=== PATIENT | male | born 1960 | race Caucasian/White ===

== ENCOUNTER 2023-10-04 06:52 | Day surgery (SDC) | payer BC, SELFPAY ==
[2023-10-04 07:58] LABS: Glucose - Point of Care 112 mg/dl (70-99)
[2023-10-04 08:03] VITALS: BMI 45.3
== END 2023-10-04 09:50 | disposition home or self-care (01) ==
LOC: CATH 06:52
PROVIDERS: ATTENDING PHYSICIAN Internal Medicine Cardiovascular Disease; FAMILY PHYSICIAN Physician Assistant Medical; OTHER PHYSICIAN Internal Medicine Cardiovascular Disease
DX: I48.0 Paroxysmal atrial fibrillation (principal); I10 Essential (primary) hypertension; Z79.01 Long term (current) use of anticoagulants
CPT/HCPCS: 93312; 93320; 93325; 82962; 92960; 93005

== ENCOUNTER 2024-01-28 09:21 | Inpatient (IN) | payer BC, SELFPAY ==
[2024-01-28 09:42] VITALS: BP 129/83
--- NOTE | 2024-01-28 09:48 | W.PN.CD ---
Addendum entered and electronically signed by Manjinder Christian MD 01/28/24 17:59:
I saw and examined the patient.
The ASSISTANT FOOD SERVICE MANAGER's note was reviewed and I agree with the note.
Comment: So far tolerating sotalol. No plans for DCCV if he does not spontaneously converts. Plan is for ablation as scheduled.
Original Note:
Today's Communication / Plan
-
EKG
Sotalol loading per protocol
Follow telemetry
Impression / Plan
-
THIS IS THE SUMMARY
SEE SCANNED H&P
BACKGROUND: 63M with persistent atrial fibrillation, hypertension, ANATOLIY, and morbid obesity who presents for sotalol loading and eventual atrial fibrillation ablation.
Persistent atrial fibrillation
-Initially diagnosed 03/2022, recurrent with multiple cardioversions (last DCCV )
-Diltiazem has been held for 48 hours
-Plan is for sotalol loading, this drug requires intensive monitoring
-Oral anticoagulation: Eliquis 5 mg twice daily
-[id number]: score 1 (HTN)
-Plan for atrial fibrillation ablation in the future
Hypertension, HCTZ discontinued at office visit, follow BP
Non obstructive CAD, stable without chest pain
Dyslipidemia, continue atorvastatin 40 mg
ANATOLIY on CPAP
Morbid obesity, BMI 45
Prior prostate cancer
Subjective:
Denies CP and SOB.
Physical Exam
Physical Exam
Constitutional: No acute distress and Comfortable
EENT: Anicteric and Moist mucous membranes
Cardiovascular: Rhythm/rate is irregular and S1S2 is normal
Respiratory: Respiratory effort normal and Lungs clear to auscul.
GI: Soft, Distention absent, Flat, Non tender and Normal bowel sounds
Neuro/Psych: AO x 3
Other: Skin (warm and dry)
Data Reviewed
-
Date of Service: January 28, 2024
EKG: Ordered by me
Labs: Labs Reviewed by me
Old Records: Reviewed
[2024-01-28 10:15] VITALS: BMI 45.6
[2024-01-28 10:32] VITALS: BMI 45.6
--- NOTE | 2024-01-28 11:13 | PTCARENOTE ---
Admitted patient from home for sotalol loading. EKG done, labs done last week and an outpatient. Oriented to the room and plan of care, admission assessment completed. Controlled AF on the monitor, offers no complaints. Patient brought in his own
Bipap from home. Home med list confirmed.
[2024-01-28] MEDS: BETAPACE 120 MG PO ×2 (11:33→22:02)
[2024-01-28 11:39] VITALS: BP 136/98
--- NOTE | 2024-01-28 14:03 | CM ---
spoke to pt in room, he is prev indep, lives with his S.O. in a 2 story home with 1 step to enter. he denies any dc planning needs, he has a bipap he uses nightly. he denies any dc planning needs. plan si for dc to home when medically stable.
[2024-01-28 16:42] VITALS: BP 120/71
[2024-01-28 19:05] VITALS: BP 135/88
[2024-01-28] MEDS: THERAGRAN 1 TABLET PO (19:59)
[2024-01-28] MEDS: ELIQUIS 5 MG PO (19:59)
[2024-01-28] MEDS: LIPITOR 40 MG PO (19:59)
--- NOTE | 2024-01-28 20:54 | PTCARENOTE ---
Pt ambulating in room as a self. plan of care discussed- pt without complaints at this time. remains afib on the monitor.
[2024-01-28 22:02] VITALS: BP 125/83
[2024-01-28] MEDS: MELATONIN 12 MG PO (22:02)
[2024-01-29 03:46] VITALS: BP 114/82
[2024-01-29 07:21] VITALS: BP 124/90
[2024-01-29] MEDS: ALTACE 20 MG PO (08:55)
[2024-01-29] MEDS: PROTONIX 40 MG PO (08:56)
[2024-01-29] MEDS: ELIQUIS 5 MG PO ×2 (08:56→19:43)
[2024-01-29] MEDS: CELEBREX 200 MG PO (08:56)
[2024-01-29] MEDS: BETAPACE 120 MG PO ×2 (08:56→19:43)
[2024-01-29] MEDS: FLUSH (NSS) 1 FLUSH IV (08:57)
[2024-01-29 11:05] VITALS: BP 110/76
--- NOTE | 2024-01-29 11:49 | PTCARENOTE ---
Patient offers no complaints this morning, received 3rd dose of sotalol, QTc within normal range.
--- NOTE | 2024-01-29 15:08 | W.PN.CD ---
Today's Communication / Plan
-
Still tolerating sotalol.
No plans for DCCV if he does not spontaneously converts.
Plan is for ablation as scheduled.
Home tomorrow several hours after 6th dose of sotalol
Impression / Plan
-
Background: 63M with persistent atrial fibrillation, hypertension, ANATOLIY, and morbid obesity who presents for sotalol loading and eventual atrial fibrillation ablation.
Persistent atrial fibrillation
- Diagnosed 03/2022, recurrent after cardioversions (last DCCV )
- Sotalol loading, this drug requires intensive monitoring
- Oral anticoagulation: Eliquis 5 mg twice daily
- [id number]: score 1 (HTN)
-Atrial fibrillation ablation is already planned
Hypertension
- now off dilt and HCTZ
- monitor BP over time
BMI 45
- Goal is BMI <25 over time
Non obstructive CAD,
Dyslipidemia, continue atorvastatin 40 mg
ANATOLIY on CPAP
Morbid obesity, BMI 45
Prior prostate cancer
Subjective:
Denies CP and SOB.
Data reviewed: Tele good. No Torsades. EKG good. QTc fine
Physical Exam
Vital Signs/Labs
Vital Signs
Temp Pulse Resp BP Pulse Ox
98.2 F 72 20 110/76 97
01/29/24 11:09 01/29/24 12:00 01/29/24 11:09 01/29/24 11:05 01/29/24 11:09
01/28/24 01/29/24 01/30/24
06:59 06:59 06:59
Actual Weight 140.1 kg
Physical Exam
Constitutional: No acute distress
EENT: Anicteric
Cardiovascular: Rhythm/rate is irregular and Murmur/rub/gallop absent
Respiratory: Respiratory effort normal and Lungs clear to auscul.
GI: Soft and Distention absent
Neuro/Psych: AO x 3
Data Reviewed
-
Date of Service: January 29, 2024
[2024-01-29 15:44] VITALS: BP 143/93
[2024-01-29 18:33] VITALS: BP 120/69
[2024-01-29] MEDS: THERAGRAN 1 TABLET PO (19:43)
[2024-01-29] MEDS: LIPITOR 40 MG PO (19:43)
[2024-01-29 21:49] VITALS: BP 114/72
[2024-01-29] MEDS: MELATONIN 12 MG PO (22:01)
[2024-01-30 04:42] VITALS: BP 116/75
[2024-01-30] MEDS: BETAPACE 120 MG PO ×2 (06:02→17:02)
--- NOTE | 2024-01-30 08:55 | W.PN.CD ---
Addendum entered and electronically signed by Manjinder Christian MD 01/30/24 14:44:
I saw and examined the patient.
The INTERIOR PLANT CARETAKER's note was reviewed and I agree with the note.
Comment: Tele good. EKG good. Clinically tolerating sotalol. Anticipate home several hours after 6th dose of sotalol if tele/QTc good.
Original Note:
Today's Communication / Plan
-
-continue sotalol 120 mg PO Q 12 hours. Follow tele and EKG's. If QTC/tele/patient stable after 6th dose tonight, okay for d/c.
-He remains in rate-controlled afib and plan is ablation later this month
-continue Eliquis
-okay to remain off diltiazem and HCTZ, follow BP over time, but doing fine on current meds
Impression / Plan
-
Background: 63M with persistent atrial fibrillation, hypertension, ANATOLIY, and morbid obesity who presents for sotalol loading and eventual atrial fibrillation ablation.
Persistent atrial fibrillation
-Diagnosed 03/2022, recurrent after cardioversions (last DCCV )
-Sotalol loading, this drug requires intensive monitoring. He is tolerating this medicine without issues with stable tele and QTC by EKG, continue to monitor tele and EKG. If all remains stable, can go home 2 hours after tonight's dose of sotalol.
-Oral anticoagulation: Eliquis 5 mg twice daily
-[id number]: score 1 (HTN)
-Remains in AFIB and atrial fibrillation ablation is already planned
Hypertension
-now off dilt and HCTZ
-monitor BP over time
-it is stable here on ramipril and sotalol
BMI 45
- Goal is BMI <25 over time
Non obstructive CAD
Dyslipidemia, continue atorvastatin 40 mg
ANATOLIY on CPAP
Morbid obesity, BMI 45
Prior prostate cancer
Subjective:
Feeling fine, happy that he will likely go home tonight
Physical Exam
Vital Signs/Labs
Vital Signs
Temp Pulse Resp BP Pulse Ox
98.2 F 80 18 116/75 98
01/30/24 04:44 01/30/24 04:42 01/30/24 04:44 01/30/24 04:42 01/30/24 04:44
01/29/24 01/30/24 01/31/24
06:59 06:59 06:59
Actual Weight 140.1 kg
Physical Exam
Constitutional: No acute distress
EENT: Anicteric
Cardiovascular: Rhythm/rate is irregular
Respiratory: Respiratory effort normal and Lungs clear to auscul.
GI: Soft, Non tender and Normal bowel sounds
Neuro/Psych: AO x 3
Data Reviewed
-
Date of Service: January 30, 2024
EKG: Tracing Personally Visualized and interpreted (AFIB, stable QTC) and Other (tele AFIB, rate-controlled)
[2024-01-30] MEDS: PROTONIX 40 MG PO (09:54)
[2024-01-30] MEDS: CELEBREX 200 MG PO (09:55)
[2024-01-30] MEDS: ELIQUIS 5 MG PO ×2 (09:55→19:10)
[2024-01-30 09:58] VITALS: BP 135/84
[2024-01-30] MEDS: ALTACE 20 MG PO (10:03)
--- NOTE | 2024-01-30 10:05 | W.DS.TRANS ---
DC Summary - [employer]
-
Discharge Instructions:
Discharge Diagnosis/Procedures Persistent atrial fibrillation
Sotalol loading
Diet Low Sodium,Low Cholesterol,2 Gram Sodium
Activity No restrictions
Driving Restrictions As prior to admission
Bathing Restrictions None
Instructions:
Stand-Alone Forms:
Changes to Home Medications: Yes
Discharge Medications:
DC Medications w/original date entered in [employer]
apixaban 5 mg tablet (Eliquis) 5 mg PO BID Blood Clot Prevention/Tx 08/23/22
glucosam 750 mg-chondroi 100 mg-hyalur 1.65 mg-CF borate 108 mg tablet ([employer] Free [employer]) 2 tab PO DAILY Supplement 08/23/22
melatonin 12 mg tablet 12 mg PO HSPRN PRN insmonia 08/23/22
yxvrmbfn-cv-zazed 300 mcg-K 60 mcg-lycop 600 mcg-lutein 300 mcg tablet (Centrum Silver Men) 1 tab PO QPM Supplement 08/23/22
omeprazole 20 mg capsule,delayed release 20 mg PO DAILY Gastrointestinal Issue 08/23/22
ramipril 10 mg capsule 20 mg PO DAILY Blood Pressure 08/23/22
atorvastatin 40 mg tablet 40 mg PO QPM #90 tabs 09/01/22
nitroglycerin 0.4 mg sublingual tablet 0.4 mg sublingual [id number] PRN chest pain #25 tabs 09/01/22
coenzyme Q10 100 mg capsule (CoQ-10) 300 mg PO DAILY Supplement 10/04/23
docusate sodium 100 mg tablet (Stool Softener) 100 mg PO PRN PRN constipation 10/04/23
dtlxokxzmlt-mujkbtrldsslhquqlnjku-pbl H-enpgaeygg-spzlpd no.21 tablet 1 tab PO HS Supplement 10/04/23
celecoxib 200 mg capsule (Celebrex) 200 mg PO DAILY Pain 01/28/24
sotalol 120 mg tablet 120 mg PO Q12 #60 tabs 01/29/24
Home Medication Changes
sotalol added, HCTZ and diltiazem stopped
Pending Results: No
--- NOTE | 2024-01-30 11:11 | PTCARENOTE ---
ekg done post 5th sotalol dose. documented QTC. patient feeling good. independent in care. remains afib HR 60-70s. for d/c tonight after 6th dose and EKG
[2024-01-30 12:07] VITALS: BP 117/84
--- NOTE | 2024-01-30 12:15 | CM ---
CM following for DC planning needs.
Met w/ patient at bedside. He was on telephone.
Asked to confirm stock at [facility]. Call to [facility], 80 mg in stock, they can provide 1 1/2 pill until they receive 120 mg in stock, likely Fri. GUEST SERVICES REPRESENTATIVE and pt. aware.
There are no anticipated DC needs.
Plan is for home, no needs.
[2024-01-30 15:21] VITALS: BP 113/77
[2024-01-30] MEDS: THERAGRAN 1 TABLET PO (17:00)
[2024-01-30] MEDS: LIPITOR 40 MG PO (17:00)
--- NOTE | 2024-01-30 17:06 | PTCARENOTE ---
6th dose of sotalol given. ekg to be done 1900. and then d/c
== END 2024-01-30 20:00 | disposition home or self-care (01) | DRG 309 ==
LOC: IVU 09:21
PROVIDERS: ADMITTING PHYSICIAN Internal Medicine Cardiovascular Disease
DX: I48.19 Other persistent atrial fibrillation (principal); Z68.42 Body mass index [BMI] 45.0-49.9, adult; I10 Essential (primary) hypertension; G47.33 Obstructive sleep apnea (adult) (pediatric); I25.10 Atherosclerotic heart disease of native coronary artery without angina pectoris; E78.00 Pure hypercholesterolemia, unspecified; E66.01 Morbid (severe) obesity due to excess calories; Z79.01 Long term (current) use of anticoagulants; Z79.899 Other long term (current) drug therapy; Z85.46 Personal history of malignant neoplasm of prostate; Z87.891 Personal history of nicotine dependence
CPT/HCPCS: 93005

== ENCOUNTER 2024-02-19 05:52 | Day surgery (SDC) | payer BC, SELFPAY ==
[2024-02-12 08:22] VITALS: BMI 48.0
[2024-02-12 09:46] LABS: % Basophils 0.3 % (0-2); % Eosinophils 3.4 % (0-6); % Immature Granulocytes 0.2 % (0-0.5); % Monocytes 6.4 % (1.7-9.3); % Neutrophils 69.7 % (42.2-75.2); Absolute Eosinophils 0.3 10^3/uL (0-0.7); Absolute Lymphocytes 1.7 10^3/uL (1.2-3.4); Absolute Monocytes 0.6 10^3/uL (0.1-0.6); Absolute Neutrophils 6.1 10^3/uL (1.4-6.5); Hematocrit 38.5 % (39.0-52.0); Hemoglobin 13.5 g/dL (13.0-18.0); Mean Corp Hgb Conc. 35.1 g/dL (33.0-37.0); Mean Corpuscular Hgb 31.6 pg (27.0-31.0); Mean Corpuscular Volume 90.2 fL (80.0-94.0); Mean Platelet Volume 10.9 fL (7.4-10.4); Nucleated Red Blood Cells % 0 % (-); Platelet Count 225 10^3/uL (130-400); Red Blood Cell Count 4.27 10^6/uL (4.70-6.10); Red Cell Dist. Width 12.2 % (11.5-14.5); White Blood Cell Count 8.7 10^3/uL (4.8-10.8)
[2024-02-12 10:37] LABS: ALT (SGPT) 69 U/L (0-50); AST (SGOT) 34 U/L (17-59); Albumin 3.8 g/dl (3.5-5.0); Alkaline Phosphatase 82 U/L (38-126); Blood Urea Nitrogen 17 mg/dl (9-20); Calcium 9.2 mg/dl (8.4-10.2); Carbon Dioxide 22 mmol/L (22-30); Chloride 108 mmol/L (98-107); Estimated Creatinine Clearance 115 ml/min; Glucose 121 mg/dl (70-99); Sodium 140 mmol/L (135-145); Total Bilirubin 0.8 mg/dl (0.2-1.3); Total Protein 6.4 g/dl (6.3-8.2); eGFR > 60.00
[2024-02-19] VITALS (14 sets, daily range): BP systolic 134–150; BP diastolic 72–100; BMI 48.0
[2024-02-19] MEDS: NSS 500 IV (06:47)
[2024-02-19 09:01] LABS: ACT-LR - POC 332 Seconds (116-155)
[2024-02-19 09:20] LABS: ACT-LR - POC 273 Seconds (116-155)
[2024-02-19 09:42] LABS: ACT-LR - POC 314 Seconds (116-155)
[2024-02-19 10:03] LABS: ACT-LR - POC 321 Seconds (116-155)
[2024-02-19 10:23] LABS: ACT-LR - POC 305 Seconds (116-155)
[2024-02-19 10:50] LABS: ACT-LR - POC 313 Seconds (116-155)
[2024-02-19] MEDS: TYLENOL 650 MG PO (11:38)
[2024-02-19] MEDS: LASIX 40 MG IV (11:43)
[2024-02-19] MEDS: ANESTHETIC LOZENGE 1 LOZENGE PO (12:54)
--- NOTE | 2024-02-19 13:40 | ITS.CL.ABL ---
Pediatrics Physician - Ablation
Ablation
Procedure Report:
AFIB ablation:
Mr. West is a very pleasant 63 yr old gentleman with medical history significant for symptomatic persistent atrial fibrillation failed Sotalol and is recommended rhythm control and is here in the EP lab for atrial fibrillation ablation
Date of Procedure:
02/19/2024
Indications:
Symptomatic atrial fibrillation
Pre-Operative Diagnosis:
Persistent Atrial fibrillation
Post-Operative Diagnosis:
Persistent Atrial fibrillation
Procedure Performed:
Atrial fibrillation ablation with wide area circumferential ablation (WACA) approach for pulmonary vein isolation
Atypical atrial flutter ablation with roof line formation
Posterior wall isolation
Substrate modification
Performing Physician:
Matthew Buckner MD
Assistants:
EP staff
Anesthesia:
See anesthesia records
Detailed Description of the Procedure:
Written informed consent was obtained from the patient after a full explanation of the risks and benefits of the procedure including the risks of sedation and anesthesia.
The patient was brought to the electrophysiology laboratory in stable condition in fasting state. Continuous electrocardiographic and hemodynamic monitoring was initiated.
The initial rhythm was atrial fibrillation.
The procedure site was meticulously prepared with surgical scrub and allowed to dry with no pooling. Sterile draping was applied to cover the procedure site. The image intensifier was draped with sterile bag and positioned over the patient. After
infusion of local anesthetic, vascular access was obtained under ultrasound guidance and sheaths were placed over guide wire as detailed below.
Sheath and Catheter Placement:
In the right femoral vein, an 8-Cook Islander sheath was placed for use during the ablation procedure. A second 9-Fr sheath was placed for use during intracardiac echo procedure.
The sheaths were upgraded as needed during the case. Intracardiac catheters were positioned using direct fluoroscopic guidance.� ICE catheter was placed in RA. The following catheters / sheaths were placed
Sheaths:
��������������� Agilis sheath in right femoral vein upgraded from 8Fr in right femoral vein
��������������� 9Fr in right femoral vein
��������������� 7fr in right femoral vein
Catheters:
������������� Biosense Cadena Thermocool STSF bidirectional (D/F) - at locations of HRA, RV, LA and LV.
������������� Pentaray catheter � at locations of RA� and LA
������������� ICE catheter - at locations of RA, SVC, and RV.
������������� Decapolar Bard catheter � at locations of RA and CS
Intracardiac ECHO:
An 8-Cook Islander AcuNav intracardiac ECHO (ICE) probe was advanced through the 9-[place] Islander sheath in the femoral vein into the right atrium under fluoroscopic and ICE ultrasound image guidance and a baseline ECHO study was performed. The left atrial size
was enlarged. There was trace tricuspid regurgitation. The aortic valve was normal. There was borderline normal left ventricular size and function. There was small pericardial effusion. The NICOLAS has low velocities noted on Doppler in atrial
fibrillation and in sinus. There was significant spontaneous contrast noted. All the four veins were identified and good flow noted.
During the procedure, ICE was used for monitoring of complications, guidance of trans-septal puncture, monitor the catheter position and tracking ablation lesions. No change in the pericardial space noted throughout the procedure.
Trans-septal Puncture:
Heparin was initiated and infused to maintain appropriate ACT.
A J-tipped guidewire was advanced through the 8-Cook Islander sheath in the right femoral vein into the superior vena cava under fluoroscopic and ICE guidance. The 8-[place] Islander sheath was exchanged for an Agilis sheath which was advanced into the superior vena
cava. A TSX needle was advanced until the tip was slightly behind the tip of the dilator inside the Agilis. The apparatus was withdrawn until it was in contact with the fossa ovalis. The position was adjusted based on fluoroscopy and ultrasound
images from ICE. Under fluoroscopic, hemodynamic and ICE ultrasound guidance, left atrium was cannulated by advancing the needle. Once atrial septum was cannulated, the needle was pulled back and a BMW guide wire was advanced through the needle into
the left atrium. The guide wire was advanced into the left superior pulmonary vein. Both the sheath and the dilator was advanced into the left atrium. The dilator with the needle was withdrawn. Blood was aspirated from the Agilis sheath and arterial
blood confirmed. The sheath was flushed. Saline injection noted into the left atrium on ICE. The pressure waveform was checked ad LA pressure measured. The penta-ray catheter was advanced in the Agilis sheath into the left pulmonary vein.
The 3-D mapping was done and then the penta-ray was switched to ablation catheter and back to penta-ray as needed.
3D Electroanatomic Mapping:
Using the Pentaray catheter advanced through Agilis sheath into the left atrium, an electroanatomic map (EAM) of the left atrium was created using [employer] Carto mapping system. The map was used for localization of catheter position and
tacking of ablation lesions. The EAM of the left atrium showed 4 pulmonary veins with all four electrically connected to the body the LA. It showed extensive low voltage areas in atrial fibrillation on the posterior wall of the LA in atrial
fibrillation but once sinus rhythm achieved, there was only moderate scar with only scattered scar in the posterior wall of the LA. The LA was severely dilated in size.
Pf note, the LA size was already smaller in sinus rhythm after the ablation. �
Following the EAM, preparations were made for ablation.
Phrenic nerve stimulation attempt:
The right sided pulmonary veins were identified and the anterior antrum and the deep anterior locations of the PVs were check with high output stimulation that showed no phrenic nerve capture in any of the potential ablation areas.
The safe areas were marked and a design line was created through the safe areas of tested antral myocardium for ablation lesions.
Ablation:
Ablation # 1: Pulmonary vein Isolation:
Radiofrequency ablation was performed using an open irrigation, force-sensing 3.5mm radiofrequency ablation catheter (Thermocool STSF) by completing the circumferential lesions around the left and right pulmonary veins achieving pulmonary vein
isolation.
All the ablation lesions were guided by the Quanterix SURPOINT module with the posterior lesions were limited to 45 muniz for SURPOINT lesion index goal of 400 and anterior wall lesions were limited to SURPOINT index goal of 450.
The esophagus was noted to be on the right side of the LA near the PV antra based on the locations of the esophageal temperature probe. Ablation was stopped for any temperature increase of 0.1 degree C. Max esophageal temperature was 38.9C.
Cardioversion:
Due to the persistence of atrial fibrillation following the PVI, the decision was made to proceed with a cardioversion followed by the remainder of the ablation as detailed below. Therefore, a 200J shock was delivered to the chest via Zoll patches
placed but pt remained in atrial fibrillation. Another 360 J shock was delivered with pentecostal of sinus rhythm. The patient remained hemodynamically stable throughout.
The CS was paced with the ablator and no cardiac pause noted. �
Ablation # 2: Roof line Formation:
There was a clear channel of electrical activity left in the posterior wall with multiple CFAE and AF areas on the roof and ablation in that area increased the risk of atrial flutter and decision was made to create a roof line to block a slow
conduction. A set of radiofrequency ablations were placed on the roof line connecting the left superior pulmonary vein ablation lesions to the right superior pulmonary vein lesions rings.
Ablation # 3: Posterior wall isolation with the Box lesions set Formation:
There was a significant fractionation seen in the posterior wall and LA AF foci along with CFAE made it clear as the posterior wall is critical in maintaining the atrial fibrillation and the decision was made to isolate the posterior wall by
creating a �Box� lesions.
A set of radiofrequency ablations were placed on the floor line connecting the left inferior pulmonary vein ablation lesions to the right inferior pulmonary vein lesions rings.
The penta-ray in the posterior wall showed entrance block and the pacing from the posterior wall showed local capture with no exit from the box lesions confirming the exit block.
Ablation # 4: Posterior wall ablation with Z line formation:
With the box lesion created and block confirmed, the decision was made to ablate the posterior wall severing epicardial connections.
A series of ablations were placed connecting the junction of left superior pulmonary vein and the roof line to the junction of right inferior pulmonary vein and the floor line ablating the ganglion plexi next to both antra.
EP study and Confirmation of the PVI and bidirectional block:
Following achievement of entrance block at the pulmonary veins, pacing from the pentaray catheter in NICOLAS and the pentaray in each of the four veins at 10 milliamps for 2 milliseconds showed entrance and exit block. All PVI were rechecked at the end
of the case and remained isolated with dissociated and local capture with pacing. Entrance and exit block were demonstrated in all veins.
The LA was mapped with Carto EAM in sinus rhythm confirming the line of block at the ablation lesions lines.
Sinus Node Function: The sinus node functions are within acceptable normal range.
The AV padma functions are deemed within normal range.
Arrhythmia Induction:
No sustained arrhythmia was induced at the end of the study.�
Procedure End
ICE study was done again that showed no epicardial accumulation. No complications noted.
Following the completion of the EP study, catheters were removed. Protamine 40 mg was given at the end of the procedure and ACT was checked repeatedly. The sheaths were removed and hemostasis achieved with manual compression after acceptable ACT is
achieved.
Left atrial Pressure:
Pre-Procedure: Mean RA pressure was 15mmHg
Pre-Procedure: Mean LA pressure was 21mmHg
Post-Procedure: Mean LA pressure was 25mmHg
Post-Procedure: Mean RA pressure was 20mmHg
Estimated Blood loss:
<10 cc
Specimens Removed:
None.
Implants / Devices:
None
Urine output:
None
Packs / Drains/ Tubes:
None
Instrument / Sponge Count Correct:
Yes
Complications of the Procedure:
None
Condition of Patient at Time of Transfer:
Hemodynamically stable with no neurological or vascular compromise.
Summary:
Successful atrial fibrillation ablation with circumferential bidirectional line of block at pulmonary vein antra (Pulmonary vein isolation), Atypical flutter ablation with roof line formation, Posterior wall isolation and substrate modification with
Z line formation
--- NOTE | 2024-02-19 15:45 | W.PN.UPDATE ---
Update Note
Progress Note Update
63 yo WM s/p PVI/Aflutter ablation (same day). He feels good, no cp, sob, kacie diet, R fem site c/d/i, EKG SR no ectopy. He will continue OAC Eliquis at 6pm at home. He had elevated EDP and was given lasix 40mg iv and will be d/c home on 40mg PO
daily with BMP in 1 week. Activity restrictions reviewed. He will f/u CHARGE MASTER COORDINATOR in 2 weeks. He is for d/c home after 4pm if groin stable and voiding.
Mr. West is a very pleasant 63 yr old gentleman with medical history significant for symptomatic persistent atrial fibrillation failed Sotalol and is recommended rhythm control and is here in the EP lab for atrial fibrillation ablation
Date of Procedure:
02/19/2024
Procedure Performed:
Atrial fibrillation ablation with wide area circumferential ablation (WACA) approach for pulmonary vein isolation
Atypical atrial flutter ablation with roof line formation
Posterior wall isolation
Substrate modification
== END 2024-02-19 16:20 | disposition home or self-care (01) ==
LOC: CATH 05:52
PROVIDERS: ATTENDING PHYSICIAN Internal Medicine Cardiovascular Disease; FAMILY PHYSICIAN Physician Assistant Medical
DX: I48.19 Other persistent atrial fibrillation (principal); I48.4 Atypical atrial flutter; Z79.01 Long term (current) use of anticoagulants; E66.01 Morbid (severe) obesity due to excess calories; I10 Essential (primary) hypertension; G47.33 Obstructive sleep apnea (adult) (pediatric); Z68.42 Body mass index [BMI] 45.0-49.9, adult
CPT/HCPCS: C1769; C1894; C1732; C1766; C1892; C1759; 36415; 76937; 80053; 85025; 85347; 86850; 86900; 86901; 93005; 93655; 93656

== ENCOUNTER → 2024-03-19 10:15 | Outpatient (REF) | payer BC, SELFPAY | LOC: HWRAD 10:15 | PROVIDERS: ATTENDING PHYSICIAN Nurse Practitioner; FAMILY PHYSICIAN Physician Assistant Medical | DX: R05.9 Cough, unspecified (principal) | CPT/HCPCS: 71046 ==

== ENCOUNTER → 2024-03-26 13:58 | Outpatient (REF) | payer BC, SELFPAY | LOC: HWRAD 13:58 | PROVIDERS: ATTENDING PHYSICIAN Physician Assistant Medical | DX: R05.9 Cough, unspecified (principal) | CPT/HCPCS: 71046 ==

== ENCOUNTER → 2024-04-08 11:36 | Outpatient (REF) | payer BC, SELFPAY | LOC: RCS 11:36 | PROVIDERS: ATTENDING PHYSICIAN Internal Medicine Cardiovascular Disease; FAMILY PHYSICIAN Physician Assistant Medical | DX: I48.19 Other persistent atrial fibrillation (principal) | CPT/HCPCS: 93005 ==

== ENCOUNTER → 2025-01-07 10:34 | Outpatient (REF) | payer MEDICARE, OTHER, SELFPAY | LOC: RCS 10:34 | PROVIDERS: ATTENDING PHYSICIAN Internal Medicine Cardiovascular Disease; FAMILY PHYSICIAN Physician Assistant Medical | DX: I48.19 Other persistent atrial fibrillation (principal) | CPT/HCPCS: 93306 ==